=== PATIENT | male | born 1970 | race Caucasian/White ===

== ENCOUNTER 2017-06-14 08:39 | Emergency (ER) | payer OTHER ==
[2017-06-14 08:45] VITALS: TEMP 97.9
--- NOTE | 2017-06-14 09:31 | EDPHY ---
H & P Stated Complaint: inj r foot on long hike Time Seen by Provider: 06/14/17 08:52 HPI/ROS: Chief complaint: Right foot injury History of present illness: This is a 46-year-old male who presents to the emergency department for right foot injury. Patient states he was on a long hike yesterday, approximately 15 miles. Afterwards his right forefoot started to hurt. He is concerned he sustained a fracture. He denies direct trauma. He denies open wounds, abnormal coolness or paresthesias in the foot. No other injury reported. - Personal History Current Tetanus/Diphtheria Vaccine: Yes - Medical/Surgical History Hx Asthma: No Hx Chronic Respiratory Disease: No Hx Diabetes: No Hx Cardiac Disease: No Hx Renal Disease: No Hx Cirrhosis: No Hx Alcoholism: No Hx HIV/AIDS: No Hx Splenectomy or Spleen Trauma: No Other PMH: gastritis, tonsilectomy - Social History Smoking Status: Never smoked - Physical Exam Exam: General: Alert, nontoxic Skin: No lesions consistent with trauma Musculoskeletal: The foot and ankle are nontender to palpation. He is moving the digits of the foot and the ankle well in all ruiz. Achilles tendon intact. Vascular: DP and PT pulses 2+. Capillary refill brisk in the right foot. Neurologic: Sensation intact throughout the right foot. Constitutional: Initial Vital Signs Temperature (C) 36.6 C 06/14/17 08:42 Heart Rate 58 L 06/14/17 08:42 Respiratory Rate 20 06/14/17 08:42 Blood Pressure 121/60 H 06/14/17 08:42 O2 Sat (%) 97 06/14/17 08:42 O2 Delivery Mode Room Air Allergies/Adverse Reactions: NSAIDS (Non-Steroidal Anti-Inflamma Allergy (Verified 07/04/16 21:00) Home Medications: Medication Instructions Recorded NK [No Known Home Meds] 07/04/16 Medical Decision Making - Diagnostics Imaging Results: Imaging Impressions Foot X-Ray 06/14/17 09:01 Impression: No acute osseous findings. Imaging: I viewed and interpreted images myself Procedures: Procedure: Splint placement. A postop shoe splint was applied. After application of the splint I returned and re-examined the patient. The splint was adequately immobilizing the joint and distal to the splint the patient's circulation and sensation was intact. ED Course/Re-evaluation: Patient seen under the supervision of my secondary supervising physician Dr. Elysia Parikh. Patient presents to the emergency department for a right foot injury. The foot is neurovascularly intact. X-rays negative. Likely sprain/ strain. He is placed in a postop shoe for comfort. Home care is discussed. Return precautions are given. Patient voiced understanding and agreement with plan. Differential Diagnosis: Included but not limited to contusion, sprain or strain, bony fracture, joint dislocation Departure - Departure Disposition: Home, Routine, Self-Care Clinical Impression: Foot sprain Qualifiers: Encounter type: initial encounter Laterality: right Qualified Code(s): S93.601A - Unspecified sprain of right foot, initial encounter Condition: Good Instructions: Foot Sprain (ED) Additional Instructions: Follow-up with a primary care doctor or Podiatry for continued evaluation and care Use ibuprofen 600 mg 3 times daily for the next 2-3 days If symptoms worsen or new symptoms develop return to the emergency room for recheck Referrals: NONE *PRIMARY CARE P,. [Primary Care Provider] - As per Instructions Ella Wyman DPM [Doctor of Podiatric Medicine] - As per Instructions
[2017-06-14 10:03] VITALS: BP 112/72; PULSE 57; RESP 16; O2SAT 95
== END 2017-06-14 10:06 | disposition home or self-care (01) ==
DX: S93.601A Unspecified sprain of right foot, initial encounter (principal); X58.XXXA Exposure to other specified factors, initial encounter; Y99.8 Other external cause status; Y93.01 Activity, walking, marching and hiking
CPT/HCPCS: L3260

== ENCOUNTER 2018-04-25 14:09 | Emergency (ER) | payer OTHER ==
[2018-04-25 14:13] VITALS: BP 106/70
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
== END 2018-04-25 15:03 | disposition home or self-care (01) ==
DX: S62.667A Nondisplaced fracture of distal phalanx of left little finger, initial encounter for closed fracture (principal); S60.811A Abrasion of right wrist, initial encounter; S60.512A Abrasion of left hand, initial encounter; V16.4XXA Pedal cycle driver injured in collision with other nonmotor vehicle in traffic accident, initial encounter; Y92.410 Unspecified street and highway as the place of occurrence of the external cause; Y99.8 Other external cause status; Y93.55 Activity, bike riding